=== PATIENT | female | born 1995 | race Caucasian/White ===

== ENCOUNTER 2023-03-09 13:05 | Inpatient (IN) ==
--- NOTE | 2023-03-09 15:52 | History & Physical Report ---
Date of Service March 09, 2023 Assessment & Plan (1) GBS (group B streptococcus) infection: (2) Need for rhogam due to Rh negative mother: (3) Shrimp allergy: Rosalina Santiago is a 27 year-old female at 40w3d gestation who presents in labor. -Will admit for labor -A-/GBS positive/Rubella immune. Will treat with PCN -3.5cm, 80%, -2. Fetus cat 1. -Can receive epidural if desired History of Present Illness Primary Care Provider: JOHANNY Rahman Pamela is a 27 year-old female at 40w3d gestation who presents in labor. Past medical history includes Kawasaki disease (diagnosed at age 18 months), followed by cardiology until age 15. Does not have any additional medical conditions. She notes normal movement, states she had a small amount of bleeding after losing her mucus plug early this morning. She is experiencing intermittent contractions, approximately 4-6 minutes apart. Denies shortness of breath or chest pain. 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 NON-REACTIVE (NON-REACTIVE) 08/14/22 Hepatitis C Antibody (EIA) NON-REACTIVE (NON-REACTIVE) 08/14/22 HIV (1&2) Ag and Ab Confirmation NON-REACTIVE (NON-REACTIVE) 08/14/22 Glucose 1 Hour 50 gm Load 79 mg/dl (70-130) 12/19/22 OB Optional Labs: Chlamydia trachomatis RNA Not Detected (NotDetected) 08/14/22 Neisseria gonorrhoeae RNA Not Detected (NotDetected) 08/14/22 Thyroid Stimulating Hormone (TSH) 1.740 uIu/ml (0.300-4.500) 10/04/22 Allergies Allergy/AdvReac Type Severity Reaction Status Date / Time shrimp Allergy Intermediate Nausea Verified 03/02/23 08:42 iodine Allergy Mild Vomiting Verified 03/02/23 08:42 No Known Drug Allergies Allergy Verified 03/02/23 08:42 shellfish derived Allergy Verified 03/02/23 08:42 Home Medications Medication Instructions Recorded Confirmed Type loratadine 10 mg tablet (Claritin) 10 mg PO DAILY 08/04/22 03/09/23 History docusate sodium 100 mg capsule 100 mg PO DAILY 03/09/23 03/09/23 History (Colace) vits no.124-ferrous fum 1 tab PO DAILY 03/09/23 03/09/23 History 27 mg iron-folic acid 800 mcg tablet ( Vitamin) Patient History Medical History Allergic conjunctivitis Allergic rhinitis Routine gynecological examination Shrimp allergy Surgical History History of gynecologic surgery Hymenotomy [place] teeth extracted Family History Mother Allergic rhinitis Unknown Asthma Grandfather (Maternal) Alcohol abuse Diabetes Grandmother (Maternal) Prediabetes Ovarian cancer Grandmother (Paternal) Prediabetes Grandfather (Maternal) Prediabetes Grandfather (Paternal) Prediabetes Father Kidney stones Other Drinking problem Fibroid Hypercholesteremia Hypertension Kidney disease Thyroid disease Denies family history of Prostate cancer Myocardial infarction Breast cancer Colorectal cancer Social History (Updated 10/04/22 @ 11:04 by SINCERE Funes) Smoking Status: Never smoker Second Hand Exposure: No; Do You Dip or Chew Tobacco: No; Hx Alcohol Use: No Hx Substance Use: No Preferred Language: Chadian Communication Ability: Effective Visual Impairment: No Limitations Hearing Ability: Normal Carrier Washer Required: No Beliefs That Will Affect Care: None marital status: marital status details: Cory Rebolledo (24) [phone] Current Living Situation: Spouse Current Living Situation Comment: Lives with and dog. 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 Respiratory: normal respiratory effort, lungs clear to auscultation Cardiovascular: Rate/Rhythm: regular rate and regular rhythm +1 bilateral lower extremity edema Skin: no rashes, warm and dry Psychiatric: A+Ox3, euthymic affect Genitourinary: Manual OB Exam: + cervical dilation (3.5), + cervical effaceme nt 80% and + station -2 OB Exam Monitor Tracing: + external FHT monitor used and + category I Exam per Dr. Bah Results & Data Vital Signs (Past 12 Hours) Vital Signs Temp Pulse Resp BP 03/09/23 13:27 36.7 C 84 20 118/72 03/09/23 13:12 84 118/72 Supervising Physician Co-Signing Physician Notes Resident Physician Supervision Note: I interviewed and examined the patient. Discussed with Dr. Mathur and agree with findings and plan as documented in the note. Any exceptions or clarifications are listed here: 27 yo G1 at 40 3/7 presented w/ c/o ctx increasing in frequency and intensity. Was seen overnight and 1cm, d/c'd home. Reports ctx were q5-6 at that time, now more q4-5 and more painful. +FM; denies LOF, significant VB. Initial exam 2-3, progressed to 3-4. PNI: GBS+. VSS, SVE 3-4/50/-2 on last check. Fetus cat 1, ctx q5-6. Will admit, augment PRN. Start PCN, epidural prn Documented By: Sharron Bah MD Resident Activity Tracking Resident Involvement: Resident Care Provided Care Provided: OB Delivery
[2023-03-09] MEDS ORDERED: LIDOCAINE 1% LOCAL 20 ML VIAL INFIL PRN (16:13)
[2023-03-09] MEDS ORDERED: OXYTOCIN 30 UNITS/500 ML BAG IV PRN ×2 (16:13→21:31)
[2023-03-09 16:32] LABS: Hematocrit (blood only) 37.9 % (37.0-47.0); Hemoglobin 12.6 g/dl (12.0-16.0); Mean Corpuscular Hemoglobin 27.8 pg (25.0-34.0); Mean Corpuscular Hgb Conc 33.2 g/dL (32.0-36.0); Mean Corpuscular Volume 83.5 fL (80.0-100.0); Mean Platelet Volume 9.9 fL (9.4-12.4); Platelet Count 335 K/uL (130-400); RDW Coefficient of Variation 13.2 % (11.5-14.5); Red Blood Count 4.54 M/uL (4.20-5.40); White Blood Count 11.09 K/ul (4.8-10.8)
[2023-03-09] MEDS ORDERED: PENICILLIN G POTASSIUM 6 MU in DEXTROSE 5% 250 ML IV STA (16:38)
[2023-03-09] MEDS: LACTATED RINGER'S 1,000 ML IV PRN ×2 (17:10→20:46)
[2023-03-09] MEDS ORDERED: fentaNYL citrate PF 100 MCG/2 ML VIAL ONE (19:49)
[2023-03-09] MEDS ORDERED: SODIUM CHLORIDE 0.9% PF INJ 10 ML VIAL ONE (19:49)
[2023-03-09] MEDS ORDERED: BUPIVACAINE 0.25% PF 30 ML VIAL ONE (19:50)
[2023-03-09] MEDS ORDERED: LIDOCAINE 2%/EPINEPHRINE 1:200,000 20 ML PF ONE (19:50)
[2023-03-09] MEDS ORDERED: fentaNYL 2MCG/ML ROPIVACAINE 1.25MG/ML 100 ML BAG EPI ONE (19:50)
[2023-03-09] MEDS ORDERED: BUPIVACAINE 0.25% PF 30 ML VIAL EPI STA (19:52)
[2023-03-09] MEDS ORDERED: SODIUM CHLORIDE 0.9% PF INJ 10 ML VIAL EPI STA (19:52)
[2023-03-09] MEDS ORDERED: NALOXONE HCL 1 MG in SODIUM CHLORIDE 0.9% 1000ML 1,000 ML IV PRN (19:52)
[2023-03-09] MEDS ORDERED: ROPIVACAINE 0.5% PF 5 MG/ML 20 ML VIAL EPI PRN (19:52)
[2023-03-09] MEDS ORDERED: LIDOCAINE 2% MPF LOCAL 5 ML VIAL EPI PRN (19:52)
[2023-03-09] MEDS ORDERED: NALOXONE HCL 0.4 MG/1 ML VIAL/CARP IV PRN (19:52)
[2023-03-09] MEDS ORDERED: fentaNYL citrate PF 100 MCG/2 ML VIAL EPI STA (19:52)
[2023-03-09] MEDS ORDERED: BUPIVACAINE 0.25% PF 30 ML VIAL EPI PRN (19:52)
[2023-03-09] MEDS ORDERED: ePHEDrine sulfate 50 MG/ML AMP IV PRN (19:52)
[2023-03-09] MEDS ORDERED: NALBUPHINE HCL INJ 10 MG/ML AMP IV PRN (19:52)
[2023-03-09] MEDS ORDERED: LIDOCAINE 2%/EPINEPHRINE 1:200,000 20 ML PF EPI STA (19:52)
[2023-03-09] MEDS ORDERED: fentaNYL 2MCG/ML ROPIVACAINE 1.25MG/ML 100 ML BAG EPI PRN (19:52)
[2023-03-09] MEDS ORDERED: fentaNYL citrate PF 100 MCG/2 ML VIAL EPI PRN (19:52)
[2023-03-09] MEDS ORDERED: SODIUM CHLORIDE 0.9% PF INJ 10 ML VIAL EPI PRN (19:52)
[2023-03-09] MEDS ORDERED: diphenhydrAMINE 50 MG/ML VIAL IV PRN (19:52)
[2023-03-09] MEDS ORDERED: ePHEDrine sulfate 50 MG/ML AMP ONE (19:53)
--- NOTE | 2023-03-09 19:55 | Anesthesiology Consultation ---
Date of Service March 09, 2023 Assessment & Plan ASA ASA2 Proposed Anesthesia Anesthesia Type: Labor Epidural Risk / Benefits Reviewed With: PT / POA / Parent / Guardian, Accepts Plan and Informed Consent Obtained History Height/Weight Height: 5 ft 8 in Weight: 105.687 kg Allergies Allergy/AdvReac Type Severity Reaction Status Date / Time shrimp Allergy Intermediate Nausea Verified 03/02/23 08:42 iodine Allergy Mild Vomiting Verified 03/02/23 08:42 No Known Drug Allergies Allergy Verified 03/02/23 08:42 shellfish derived Allergy Verified 03/02/23 08:42 Medications Home Medications Medication Instructions Recorded Confirmed Last Taken loratadine 10 mg tablet (Claritin) 10 mg PO DAILY 08/04/22 03/09/23 03/08/23 docusate sodium 100 mg capsule 100 mg PO DAILY 03/09/23 03/09/23 03/08/23 (Colace) vits no.124-ferrous fum 1 tab PO DAILY 03/09/23 03/09/23 03/08/23 27 mg iron-folic acid 800 mcg tablet ( Vitamin) Active Medications Generic Name Dose Route Start Last Admin Trade Name Freq PRN Reason Stop Dose Admin Lactated Ringer's 1,000 mls @ 125 mls/hr 03/09/23 16:13 03/09/23 19:05 Lr IV 03/11/23 16:12 0 mls/hr .Q8H PRN Infusion L&D Protocol Protocol Past Medical History Medical History Allergic conjunctivitis Allergic rhinitis Routine gynecological examination Shrimp allergy Exercise / Class Metabolic Activity II 4-5 Yardwork/Stairs/Walk up hill Past Family History Family History Mother Allergic rhinitis Unknown Asthma Grandfather (Maternal) Alcohol abuse Diabetes Grandmother (Maternal) Prediabetes Ovarian cancer Grandmother (Paternal) Prediabetes Grandfather (Maternal) Prediabetes Grandfather (Paternal) Prediabetes Father Kidney stones Other Drinking problem Fibroid Hypercholesteremia Hypertension Kidney disease Thyroid disease Denies family history of Prostate cancer Myocardial infarction Breast cancer Colorectal cancer Past Surgical History Surgical History History of gynecologic surgery Hymenotomy [place] teeth extracted Past Anesthesia History No Hx of Anesthesia Complications and No Family Hx of Anesthesia Complications History of PONV No Hx of PONV and No Hx of Motion Sickness Social History Smoking Status: Never smoker Do You Dip or Chew Tobacco: No Hx Alcohol Use: No Hx Substance Use: No Review of Systems denies fever/cough/ colds/ chest pain/ SOB/ LATONYA denies LATONYA Physical Exam Vital Signs Last Vital Signs Temp 36.7 C 03/09/23 19:15 Pulse 96 H 03/09/23 19:05 Resp 16 03/09/23 19:15 BP 131/78 03/09/23 19:05 ENMT Mouth: no TMJ abnormality and no dentition abnormality Thyromental Distance: > or= 3.5 Finger Breadths Mallampati Class: II Neck neck extension not limited Respiratory normal respiratory effort; no respiratory distress Auscultation: lungs clear to auscultation bilaterally Cardiovascular Rate/Rhythm: regular rate and regular rhythm Neurologic moves all extremities Psychiatric Orientation: alert and oriented x 3 Testing Laboratory Results 03/09/23 16:13 Blood Type A Negative 03/09/23 16:19 Antibody Screen NEGATIVE 03/09/23 16:19
--- NOTE | 2023-03-09 21:22 | Labor Progress Brief Note ---
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, pit if needed GBS+, pcn ordered epidural in place Admission and Anticipated Discharge Date Admission Date: March 09, 2023 Physical Exam Genitourinary: Manual OB Exam: + cervical dilation 4 cm, + cervical effacement 80%, + station -2 and + amniotic fluid (arom clear) OB Exam Monitor Tracing: + external FHT monitor used, + external uterine monitor used (q7) and + category I (130/mod/+accel/-decel) Results & Data Vital Signs (Past 12 Hours) Vital Signs Temp Pulse Resp BP Pulse Ox 03/09/23 19:15 98.1 F 16 03/09/23 13:27 98.1 F 84 20 118/72 03/09/23 21:17 98 03/09/23 21:17 73 03/09/23 21:12 99 03/09/23 21:12 83 03/09/23 21:07 99 03/09/23 21:07 65 03/09/23 21:07 133/73 03/09/23 21:02 98 03/09/23 21:02 83 03/09/23 20:57 99 03/09/23 20:57 81 03/09/23 20:52 99 03/09/23 20:52 79 03/09/23 20:52 82 03/09/23 20:52 117/86 03/09/23 20:47 98 03/09/23 20:47 86 03/09/23 20:42 99 03/09/23 20:42 84 03/09/23 20:37 99 03/09/23 20:37 79 03/09/23 20:36 79 03/09/23 20:36 132/71 03/09/23 20:34 85 03/09/23 20:34 131/69 03/09/23 20:32 99 03/09/23 20:32 83 03/09/23 20:32 137/71 03/09/23 20:30 94 H 03/09/23 20:30 103/62 03/09/23 20:27 99 03/09/23 20:27 87 05/12/23 20:28 82 03/09/23 20:28 128/74 03/09/23 20:26 88 03/09/23 20:26 117/72 03/09/23 20:24 88 03/09/23 20:24 117/66 03/09/23 20:22 100 03/09/23 20:22 83 03/09/23 20:21 85 03/09/23 20:21 119/66 03/09/23 20:19 90 03/09/23 20:19 122/68 03/09/23 20:17 100 03/09/23 20:17 89 03/09/23 20:17 85 03/09/23 20:17 129/63 03/09/23 20:15 90 03/09/23 20:15 150/56 H 03/09/23 20:12 100 03/09/23 20:12 87 03/09/23 20:11 96 H 03/09/23 20:11 146/79 H 03/09/23 20:08 89 03/09/23 20:08 142/83 H 03/09/23 20:07 100 03/09/23 20:07 94 H 03/09/23 20:02 98 03/09/23 20:02 84 03/09/23 20:02 140/89 03/09/23 19:05 96 H 03/09/23 19:05 131/78 03/09/23 17:07 83 03/09/23 17:07 98.1 F 18 133/66 03/09/23 13:12 84 118/72 Coding Level of Care Code None Diagnoses GBS (group B streptococcus) infection A49.1
[2023-03-09] MEDS: PENICILLIN G POTASSIUM 3 MU in DEXTROSE 5% 100 ML IV PRN (21:45)
[2023-03-10] MEDS ORDERED: ACETAMINOPHEN 325 MG TAB PO ONE (00:12)
[2023-03-10] MEDS ORDERED: NURSING L&D Epidural Breakthrough Pain Update ONE (00:30)
[2023-03-10] MEDS: PENICILLIN G POTASSIUM 3 MU in DEXTROSE 5% 100 ML IV PRN (01:59)
--- NOTE | 2023-03-10 05:43 | Delivery Summary ---
Vaginal Delivery Summary Date of Service March 10, 2023 Vaginal Delivery Summary and 2nd Degree LAC PREOPERATIVE DIAGNOSIS: 1. Single intrauterine at 40 4/7 wga 2. Labor 3. GBS+ POSTOPERATIVE DIAGNOSIS: 1. Single intrauterine at 40 4/7 wga 2. Labor 3. GBS+ 4. Delivered PROCEDURE: 1. Normal spontaneous vaginal delivery. SURGEON: Sharron Bah MD ANESTHESIA: Epidural. ESTIMATED BLOOD LOSS: 300 mL FLUIDS: Continuous LR. URINE OUTPUT: Not measured. COMPLICATIONS: None. CONDITION: Stable. INDICATIONS: 27 yo G1 at 40 4/7 wga presented w/ ctx increasing in frequency and intensity yesterday afternoon. She continued to progress spontaneously and r eceived an epidural for pain control. She underwent AROM. Pitocin was started as significant change after arom was not yet noted and she then progressed to complete and desired to push. FINDINGS: A viable female infant, weight pending with Apgars of 7 and 9 at 1 and 5 minutes respectively. SPECIMEN: Cord blood OPERATIVE REPORT: The patient progressed to 10 cm, 100% effaced and +2 station, pushed over intact perineum with anesthesia to deliver a viable female , weight and Apgars as above. Head of delivered in RALPH position. No nuchal cord was present. Body and shoulders were delivered without difficulty. was delivered to maternal abdomen and nursing staff. Delayed cord clamping was performed for 60 seconds. Cord was clamped and cut. Cord blood was obtained. Placenta delivered spontaneously intact with 3-vessel cord. IV oxytocin and fundal massage were given for excellent hemostasis. Vagina, cervix, perineum, and placenta were inspected. A second degree laceration was noted and repaired using 3-0 vicryl. A hemostatic left labial/periclitoral abrasion was noted but needed to be repaired. Sponge and needle counts correct x2. No sponges were left behind. Mother and stable in immediate period. [facility] Vaginal Delivery Charge Vaginal Delivery Codes: 88420 global code for the antepartum, delivery, and post- Delivery Type Details: and 2nd Degree LAC
[2023-03-10] MEDS ORDERED: OXYTOCIN 30 UNITS/500 ML BAG IV PRN (05:51)
[2023-03-10] MEDS ORDERED: BENZOCAINE 20% AER SPR 82.5 GM CAN EXT PRN (05:51)
[2023-03-10] MEDS ORDERED: bisacodyL 10 MG SUPP PR PRN (05:51)
[2023-03-10] MEDS ORDERED: DIPHTHERIA/TETANUS/PERTUSSIS Vaccine (Tdap, Age 7+yrs) 0.5mL SYR/VL IM ONE (05:51)
--- NOTE | 2023-03-10 07:37 | Anesthesia Procedure Note ---
Date of Service March 10, 2023 Anesthesia Post Epidural Note Vital Signs Vital Signs: Temp Pulse Resp BP Pulse Ox 37.0 C 93 H 16 129/60 91 03/10/23 03:30 03/10/23 07:21 03/10/23 03:30 03/10/23 07:21 03/10/23 04:16 Pain Intensity Lower Back: Pain Intensity: 0 Notes Mental Status: alert / awake / arousable Nausea / Vomiting: adequately controlled Pain: adequately controlled Airway Patency, RR, SpO2: stable & adequate BP & HR: stable & adequate Hydration State: stable & adequate Neuraxial Anesthesia: was administered and sensory block is resolving Anesthetic Complications: no major complications apparent Epidural: Removed without complications and With tip intact
[2023-03-10] MEDS: DOCUSATE SODIUM 100 MG CAP PO SCH ×2 (09:47→20:45)
[2023-03-10] MEDS: PRENATAL VITAMIN 1 TAB PO SCH (09:47)
[2023-03-10] MEDS: FERROUS SULFATE 325 MG TAB PO SCH (09:47)
[2023-03-10] MEDS: IBUPROFEN 600 MG TAB PO PRN ×3 (09:47→20:45)
[2023-03-10] MEDS: HYDROCORTISONE ACETATE 25 MG SUPP PR PRN (15:25)
[2023-03-10] MEDS: ACETAMINOPHEN 325 MG TAB PO PRN (18:41)
[2023-03-11] MEDS: IBUPROFEN 600 MG TAB PO PRN ×3 (03:55→20:25)
--- NOTE | 2023-03-11 07:31 | Obstetrical Progress Note ---
Date of Service March 11, 2023 Assessment & Plan (1) Encounter for assessment: Plan Doing well. Routine care. Rhogam if indicated. Day #:: 1 Subjective Ambulation: ambulating normally Voiding: no voiding problems Passing Gas:: Yes Diet Tolerance:: regular diet Lochia:: Small Feeding Type:: breast feeding Physical Exam Constitutional WD/WN, vitals as above Respiratory normal respiratory effort, lungs clear to auscultation Cardiovascular RRR, no murmur, no edema Extremities: no calf tenderness and no edema Gastrointestinal (Abdomen) soft, nt, nd, ff/nt at u Results & Data Vital Signs (Past 12 Hours) Vital Signs Temp Pulse Pulse Resp BP BP Pulse Ox 03/11/23 03:50 36.5 C 80 16 107/68 97 03/11/23 00:10 36.7 C 87 16 101/56 L 97 03/10/23 19:55 36.4 C L 87 16 113/67 97 O2 Del Method 03/11/23 03:50 Room Air 03/11/23 00:10 Room Air 03/10/23 19:55 Room Air
[2023-03-11] MEDS: PRENATAL VITAMIN 1 TAB PO SCH (07:36)
[2023-03-11] MEDS: DOCUSATE SODIUM 100 MG CAP PO SCH ×2 (07:36→20:25)
[2023-03-11] MEDS: FERROUS SULFATE 325 MG TAB PO SCH (07:36)
[2023-03-11] MEDS: ACETAMINOPHEN 325 MG TAB PO PRN ×2 (07:42→18:06)
[2023-03-11] MEDS: HYDROCORTISONE ACETATE 25 MG SUPP PR PRN (07:42)
[2023-03-11] MEDS ORDERED: bisacodyL 5 MG TABEC PO SCH (20:00)
[2023-03-12] MEDS: IBUPROFEN 600 MG TAB PO PRN ×2 (00:27→06:15)
--- NOTE | 2023-03-12 06:01 | Obstetrical Progress Note ---
Date of Service <Viky BrownKyra Pitt DO - Last Filed: 03/12/23 06:35> March 12, 2023 Assessment & Plan <Viky Hunt DO Yoandy - Last Filed: 03/12/23 06:35> (1) care following vaginal delivery: Patient is PPD 2 s/p and doing well. - Eating well, voiding well, ambulating well - Vitals reviewed and within normal limits - Pain well controlled with analgesics - OOB, ambulation, diet progression as tolerated - Blood type: A-, GBS pos, rubella immune - Plan to discharge today - After discharge, 6 week follow up with Dr. Bah (2) GBS (group B streptococcus) infection: (3) Need for rhogam due to Rh negative mother: <Niurka Dow MD, FACOG - Last Filed: 03/12/23 07:20> (1) care following vaginal delivery: (2) GBS (group B streptococcus) infection: (3) Need for rhogam due to Rh negative mother: Subjective <Viky BrownKyra Pitt DO - Last Filed: 03/12/23 06:35> Patient is a 27 yo female who is now PPD #2 following spontaneous vaginal delivery at 40 4/7 weeks. Reports feeling well this morning. She denies abdominal cramping and 3-4/10 pain well managed on analgesics. Voiding without issue. Tolerating regular meals overnight and able to ambulate some. She has passed gas and had no bowel movements. Persistent lochia with some improvement this morning. Currently breast feeding with formula supplementation. Review of Systems Denies fever, chills, sweats. Denies SOB, difficulty breathing, chest pain, palpitations, and chest pressure. Denies breast pain. Denies dysuria. Denies headache or changes in vision. Physical Exam <Viky BrownKyra Pitt DO - Last Filed: 03/12/23 06:35> General: Alert and oriented. No acute distress. CV: Regular rate and rhythm. No murmurs. Respiratory: CTA bilaterally. No rhonchi, wheezes, or crackles. No increased work of breathing. Abdomen: Positive bowel sounds. Soft, nontender, non distended. Uterus: Fundus firm and palpable 2 cm below the umbilicus. Lower extremities: No LE edema. No deep calf pain. Compression socks on bilaterally. Results & Data <Viky Pitt DO - Last Filed: 03/12/23 06:35> Vital Signs (Past 12 Hours) Vital Signs Temp Pulse Resp BP Pulse Ox O2 Del Method 03/11/23 20:30 36.4 C L 88 18 107/68 97 Room Air 03/11/23 23:32 36.6 C 82 20 116/73 97 Room Air <Niurka Dow MD, FACOG - Last Filed: 03/12/23 07:20> Co-Signing Physician Notes Resident Physician Supervision Note: I interviewed and examined the patient. Discussed with Dr. Pitt and agree with findings and plan as documented in the note. Any exceptions or clarifications are listed here: Doing well. plan d/c. Instructions given. Documented By: Niurka Dow MD, FACOG Resident Activity Tracking <Viky Pitt DO - Last Filed: 03/12/23 06:35> Resident Involvement: Resident Care Provided Care Provided: OB Delivery
[2023-03-12] MEDS: DOCUSATE SODIUM 100 MG CAP PO SCH (07:43)
[2023-03-12] MEDS: PRENATAL VITAMIN 1 TAB PO SCH (07:43)
[2023-03-12] MEDS: FERROUS SULFATE 325 MG TAB PO SCH (07:43)
[2023-03-12] MEDS: HYDROCORTISONE ACETATE 25 MG SUPP PR PRN (07:44)
[2023-03-12] MEDS: ACETAMINOPHEN 325 MG TAB PO PRN (07:56)
== END 2023-03-12 14:03 | disposition home or self-care (01) | DRG 807 ==
LOC: OPB 13:05 → 4S1 13:06 → 4E2 03-10 07:45

== ENCOUNTER 2024-08-07 07:33 | Inpatient (IN) ==
[2024-08-07] MEDS ORDERED: OXYTOCIN 30 UNITS/NSS 30 UNITS/500 ML BAG IV PRN ×2 (08:18→22:15)
[2024-08-07] MEDS ORDERED: LIDOCAINE 1% LOCAL 20 ML VIAL INFIL PRN (08:18)
--- NOTE | 2024-08-07 08:54 | History & Physical Report ---
Date of Service August 07, 2024 Assessment & Plan (1) Insulin controlled gestational diabetes mellitus (GDM) during : (2) with 39 completed weeks gestation: (3) LGA (large for gestational age) fetus affecting management of mother: Plan admit for iol. Too high to even consider arom, so plan pitocin, arom when indicated, epidural on demand, fetus category one Patient is aware that she must push this baby out on her own. Not a candidate for instrumentation. Admission and Anticipated Discharge Date Admission Date: August 07, 2024 History of Present Illness Chief Complaint: iol, lga Primary Care Provider: JOHANNY Melgar Patient is a 28yowf with iup at 39 1/7 weeks who presents to labor and delivery for iol for suspected lga. Last us showed AC and EFW in >95%, last baby was 8#13oz after a three hour push. Patient notes no labor sx. Good fm. and Delivery Plans Need for Rhogam d/t Rh negative mother - Given 05/21/24 ML circuvallate placenta *growth us serially starting at 28wks GDM on insulin *Wkly NSTs @32wks and Twice wkly @36wks *Serial growth US @28wks *Deliver by EDC - IOL 08/07 OB Labs: Blood Type A Negative 01/23/24 Antibody Screen NEGATIVE 05/21/24 Hgb 11.8 g/dl (12.0-16.0) L 05/20/24 Hct 35.8 % (37.0-47.0) L 05/20/24 MCV 85.7 fL (80.0-100.0) 01/23/24 Plt Count 420 K/uL (130-400) H 01/23/24 VZV IgG Antibody 356.40 index 06/10/20 Rubella IgG Antibody Immune (Immune) 01/23/24 RPR Nonreactive (Nonreactive) 01/23/24 Hep Bs Antigen NON-REACTIVE (NON-REACTIVE) 01/23/24 Hepatitis C Ab (EIA) NON-REACTIVE (NON-REACTIVE) 01/23/24 HIV (1&2) Ag & Ab Conf NON-REACTIVE (NON-REACTIVE) 01/23/24 Glucose 1 Hr 50 gm 149 mg/dl (70-130) H 05/20/24 OB Optional Labs: Chlamydia trachomatis RNA Not Detected (NotDetected) 01/23/24 Neisseria gonorrhoeae RNA Not Detected (NotDetected) 01/23/24 Thyroid Stimulating Hormone (TSH) 1.162 uIu/ml (0.300-4.500) 12/12/23 Labs Reviewed: cfdna-low risk--mln gbs neg--akh Allergies Allergy/AdvReac Type Severity Reaction Status Date / Time shrimp Allergy Intermediate Nausea Verified 08/06/24 14:47 iodine Allergy Mild Vomiting Verified 08/06/24 14:47 No Known Drug Allergies Allergy Unknown Verified 08/07/24 08:23 shellfish derived Allergy Unknown Verified 08/07/24 08:23 grass pollen AdvReac Unknown Verified 08/07/24 08:23 house dust mite AdvReac Unknown Verified 08/07/24 08:23 Home Medications Medication Instructions Recorded Confirmed Type loratadine 10 mg tablet (Claritin) 10 mg PO DAILY 08/04/22 08/07/24 History Saccharomyces boulardii 250 mg 250 mg PO DAILY #60 caps 10/08/23 08/06/24 Rx capsule (Daily Probiotic (S. boulardii)) PNV no.[id number] 1 tab PO DAILY 01/09/24 08/07/24 History [ Gummies] breast pump #1 ea 04/09/24 08/06/24 Rx blood sugar diagnostic (OneTouch #150 ea 07/04/24 08/06/24 Rx Verio test strips) lancets 33 gauge (OneTouch Delica #150 ea 07/04/24 08/06/24 Rx Plus Lancet) blood-glucose meter (OneTouch #1 ea 07/07/24 08/06/24 Rx Verio Reflect Meter) pen needle, diabetic 32 gauge x #100 ea 07/19/24 08/06/24 Rx 5/32" (BD Ultra-Fine Britney Pen Needle) Patient History Medical History (spontaneous vaginal delivery) 2022 Fractured coccyx At age 20 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 Scoliosis Routine gynecological examination Allergic conjunctivitis Allergic rhinitis Surgical History History of gynecologic surgery Hymenotomy [place] teeth extracted Family History Mother Allergic rhinitis Unknown Asthma Grandfather (Maternal) Alcohol abuse Diabetes Grandmother (Maternal) Prediabetes Ovarian cancer Grandmother (Paternal) Prediabetes Grandfather (Maternal) Prediabetes Grandfather (Paternal) Prediabetes Father Kidney stones Other Drinking problem Fibroid Hypercholesteremia Hypertension Kidney disease Thyroid disease Denies family history of Prostate cancer Myocardial infarction Breast cancer Colorectal cancer Social History Smoking Status: Never smoker Second Hand Exposure: No; Do You Dip or Chew Tobacco: No; Tobacco Cessation Education Requested by Patient: No Hx Alcohol Use: No Hx Substance Use: No Preferred Language: Danish Communication Ability: Effective Visual Impairment: No Limitations Hearing Ability: Normal Mattress Filling Machine Tender Required: No Beliefs That Will Affect Care: None marital status: marital status details: Cory Rebolledo (25) [phone] Current Living Situation: Spouse Current Living Situation Comment: Lives with , child, and dog. 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 Date GA wks Lbr Lgth wt Sex Type del Anes Place Del Prov ? Comment 03/10/23 40 8lb 13.4oz F Ep idural [facility] Dr. Niurka Napier [employer] History noncontributory Physical Exam Constitutional: WD/WN, vitals as above Cardiovascular: Extremities: + edema (tr); no calf tenderness Gastrointestinal (Abdomen): obese, soft, nt Psychiatric: A+Ox3, euthymic affect Genitourinary: cx--very difficult exam, 2-3/75/-3/soft/very posterior toco--radha efw--130s wtih mod variabiltiy, accels to 170s, no decels, ? mild arrythmia noted initially , but not now. Results & Data Vital Signs (Past 12 Hours) Vital Signs Temp Pulse Resp BP 08/07/24 07:51 36.4 C L 20 08/07/24 07:46 105 H 112/71 Coding Level of Care Code None Diagnoses Insulin controlled gestational diabetes mellitus (GDM) during O24.414 with 39 completed weeks gestation Z3A.39 LGA (large for gestational age) fetus affecting management of mother O36.60X0
[2024-08-07 09:11] LABS: Hematocrit (blood only) 33.9 % (37.0-47.0); Hemoglobin 11.2 g/dl (12.0-16.0); Mean Corpuscular Hemoglobin 26.1 pg (25.0-34.0); Mean Platelet Volume 9.9 fL (9.4-12.4); Platelet Count 313 K/uL (130-400); RDW Coefficient of Variation 13.3 % (11.5-14.5); RDW Standard Deviation 38.2 fL (36.4-46.3); Red Blood Count 4.29 M/uL (4.20-5.40); White Blood Count 8.33 K/ul (4.8-10.8)
[2024-08-07] MEDS: LACTATED RINGER'S 1,000 ML IV PRN (09:12)
[2024-08-07] MEDS: OXYTOCIN 30 UNITS/NSS 30 UNITS/500 ML BAG IV PRN (09:12)
[2024-08-07] MEDS ORDERED: SODIUM CHLORIDE 0.9% 250 ML IV PRN (09:27)
[2024-08-07] MEDS: ACETAMINOPHEN 325 MG TAB PO ONE (15:09)
--- NOTE | 2024-08-07 16:30 | Anesthesiology Consultation ---
Date of Service August 07, 2024 Assessment & Plan Chart Review Chart Review: Patient NOT seen in Pre Admission Testing and Acceptable Risk for Labor Epidural Consults Requested none ASA ASA2 Proposed Anesthesia Anesthesia Type: Labor Epidural Risk / Benefits Reviewed With: PT / POA / Parent / Guardian, Accepts Plan and Informed Consent Obtained History Height/Weight Height: 5 ft 8 in Weight: 105.687 kg Allergies Allergy/AdvReac Type Severity Reaction Status Date / Time shrimp Allergy Intermediate Nausea Verified 08/06/24 14:47 iodine Allergy Mild Vomiting Verified 08/06/24 14:47 No Known Drug Allergies Allergy Unknown Verified 08/07/24 08:23 shellfish derived Allergy Unknown Verified 08/07/24 08:23 grass pollen AdvReac Unknown Verified 08/07/24 08:23 house dust mite AdvReac Unknown Verified 08/07/24 08:23 Medications Home Medications Medication Instructions Recorded Confirmed Last Taken loratadine 10 mg tablet (Claritin) 10 mg PO DAILY 08/04/22 08/07/24 08/05/24 08:00 Saccharomyces boulardii 250 mg 250 mg PO DAILY #60 caps 10/08/23 08/06/24 08/05/24 08:00 capsule (Daily Probiotic (S. boulardii)) PNV [id number] 1 tab PO DAILY 01/09/24 08/07/24 08/05/24 08:00 [ Gummies] breast pump #1 ea 04/09/24 08/06/24 Unknown blood sugar diagnostic (OneTouch #150 ea 07/04/24 08/06/24 Unknown Verio test strips) lancets 33 gauge (OneTouch Delica #150 ea 07/04/24 08/06/24 Unknown Plus Lancet) blood-glucose meter (OneTouch #1 ea 07/07/24 08/06/24 Unknown Verio Reflect Meter) pen needle, diabetic 32 gauge x #100 ea 07/19/24 08/06/24 Unknown 32" (BD Ultra-Fine Britney Pen Needle) Active Medications Generic Name Dose Route Start Last Admin Trade Name Freq PRN Reason Stop Dose Admin Oxytocin 30 units in 500 mls @ 17 mls/hr 08/07/24 08:18 08/07/24 15:00 Pitocin 30 Units/Nss IV 08/09/24 08:17 1.02 units/hr .Q24H PRN 17 mls/hr Labor Induction/Augmentation Titration Protocol 1.02 UNITS/HR Lactated Ringer's 1,000 mls @ 125 mls/hr 08/07/24 08:18 08/07/24 16:27 Lr IV 08/09/24 08:17 999 mls/hr .Q8H PRN Administration L&D Protocol Protocol NPO Date Last Intake of Fluids: 08/07/24 Time Last Intake of Fluids: 16:00 Date Last Intake of Solids: 08/07/24 Time Last Intake of Solids: 12:00 Past Medical History Medical History (spontaneous vaginal delivery) 2022 Fractured coccyx At age 20 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 Scoliosis Routine gynecological examination Allergic conjunctivitis Allergic rhinitis Exercise / Class Metabolic Activity 1 > 8 Run/Swim/Ski/Tennis Past Family History Family History Mother Allergic rhinitis Unknown Asthma Grandfather (Maternal) Alcohol abuse Diabetes Grandmother (Maternal) Prediabetes Ovarian cancer Grandmother (Paternal) Prediabetes Grandfather (Maternal) Prediabetes Grandfather (Paternal) Prediabetes Father Kidney stones Other Drinking problem Fibroid Hypercholesteremia Hypertension Kidney disease Thyroid disease Denies family history of Prostate cancer Myocardial infarction Breast cancer Colorectal cancer Past Surgical History Surgical History History of gynecologic surgery Hymenotomy [place] teeth extracted Past Anesthesia History No Hx of Anesthesia Complications and No Family Hx of Anesthesia Complications History of PONV No Hx of PONV and No Hx of Motion Sickness Social History Smoking Status: Smoker, status unknown Do You Dip or Chew Tobacco: No Hx Alcohol Use: No Hx Substance Use: No Review of Systems ROS Unobtainable: All systems reviewed & are unremarkable except as noted in HPI & below Physical Exam Vital Signs Last Vital Signs Temp 37.0 C 08/07/24 12:05 Pulse 86 08/07/24 16:17 Resp 18 08/07/24 12:05 BP 97/54 L 08/07/24 16:17 ENMT Mouth: no TMJ abnormality Thyromental Distance: > or= 3.5 Finger Breadths Mallampati Class: II Neck normal visual inspection and trachea midline; neck extension not limited Respiratory normal respiratory effort Auscultation: lungs clear to auscultation bilaterally Cardiovascular Rate/Rhythm: regular rate and regular rhythm Heart Sounds: no murmur Musculoskeletal Spine: normal cervical ROM Extremities: full ROM of extremities Neurologic moves all extremities Psychiatric Orientation: alert and oriented x 3 Testing Laboratory Results 08/07/24 08:45 Blood Type A Negative 08/07/24 08:45 Antibody Screen NEGATIVE 08/07/24 08:45 08/07/24 08/07/24 08/07/24 14:59 13:03 11:03 POC Glucose 87 98 81 08/07/24 09:04 POC Glucose 81
[2024-08-07] MEDS ORDERED: fentANYL 2 MCG/ML BUPIVacaine 0.125%-NSS 100ML BAG EPI PRN (16:31)
[2024-08-07] MEDS ORDERED: LIDOCAINE 2% MPF LOCAL 5 ML VIAL EPI PRN (16:31)
[2024-08-07] MEDS ORDERED: ePHEDrine sulfate 50 MG/ML AMP IV PRN (16:31)
[2024-08-07] MEDS ORDERED: BUPIVACAINE 0.25% PF 30 ML VIAL EPI PRN (16:31)
[2024-08-07] MEDS ORDERED: fentaNYL citrate PF 100 MCG/2 ML VIAL EPI PRN (16:31)
[2024-08-07] MEDS ORDERED: ROPIVACAINE 0.5% PF 5 MG/ML 20 ML VIAL EPI PRN (16:31)
[2024-08-07] MEDS ORDERED: SODIUM CHLORIDE 0.9% PF INJ 10 ML VIAL EPI PRN (16:31)
[2024-08-07] MEDS ORDERED: NALOXONE HCL 0.4 MG/1 ML VIAL/CARP IV PRN (16:31)
[2024-08-07] MEDS ORDERED: NALBUPHINE HCL INJ 10 MG/ML AMP IV PRN (16:31)
[2024-08-07] MEDS ORDERED: diphenhydrAMINE 50 MG/ML VIAL IV PRN (16:31)
[2024-08-07] MEDS ORDERED: NALOXONE HCL 1 MG in SODIUM CHLORIDE 0.9% 1,000 ML IV PRN (16:31)
[2024-08-07] MEDS: fentANYL 2 MCG/ML BUPIVacaine 0.125%-NSS 100ML BAG ONE (16:39)
[2024-08-07] MEDS: SODIUM CHLORIDE 0.9% PF INJ 10 ML VIAL ONE (16:43)
[2024-08-07] MEDS: LIDOCAINE 2%/EPINEPHRINE 1:200,000 20 ML PF ONE (16:43)
[2024-08-07] MEDS: BUPIVACAINE 0.25% PF 30 ML VIAL ONE (16:43)
[2024-08-07] MEDS: LIDOCAINE 2%/EPINEPHRINE 1:200,000 20 ML PF EPI STA (18:21)
[2024-08-07] MEDS: fentaNYL citrate PF 100 MCG/2 ML VIAL ONE (18:21)
[2024-08-07] MEDS: SODIUM CHLORIDE 0.9% PF INJ 10 ML VIAL EPI STA (18:21)
[2024-08-07] MEDS: BUPIVACAINE 0.25% PF 30 ML VIAL EPI STA (18:21)
[2024-08-07] MEDS: ePHEDrine sulfate 50 MG/ML AMP ONE (18:21)
[2024-08-07] MEDS: fentaNYL citrate PF 100 MCG/2 ML VIAL EPI STA (18:21)
--- NOTE | 2024-08-07 19:06 | Labor Progress Brief Note ---
Date of Service August 07, 2024 Subjective comfortable Assessment & Plan (1) LGA (large for gestational age) fetus affecting management of mother: (2) Insulin controlled gestational diabetes mellitus (GDM) during : Plan sugars controlled. arom done, continue current management. Fetus category two but overall reassuring. Admission and Anticipated Discharge Date Admission Date: August 07, 2024 Physical Exam Physical Exam: cx--4/75/-2 arom--clear toco--q2-3min, pit at 19 efm--140s with mod varibility, accels present, variables with some contractions. Results & Data Vital Signs (Past 12 Hours) Vital Signs Temp Pulse Resp BP Pulse Ox 08/07/24 19:01 100 08/07/24 19:01 71 08/07/24 18:56 100 08/07/24 18:56 68 08/07/24 18:51 100 08/07/24 18:51 69 08/07/24 18:46 100 08/07/24 18:46 71 08/07/24 18:45 70 08/07/24 18:45 110/63 08/07/24 18:41 99 08/07/24 18:41 71 08/07/24 18:36 99 08/07/24 18:36 69 08/07/24 18:31 99 08/07/24 18:31 72 08/07/24 18:31 114/61 08/07/24 18:30 16 08/07/24 18:30 16 08/07/24 18:26 99 08/07/24 18:26 70 08/07/24 18:21 99 08/07/24 18:21 69 08/07/24 18:16 99 08/07/24 18:16 67 08/07/24 18:15 73 08/07/24 18:15 108/65 08/07/24 18:11 99 08/07/24 18:11 71 08/07/24 18:06 100 08/07/24 18:06 73 08/07/24 18:01 100 08/07/24 18:01 69 08/07/24 18:01 68 08/07/24 18:01 109/67 08/07/24 17:56 100 08/07/24 17:56 70 08/07/24 17:51 100 08/07/24 17:51 72 08/07/24 17:46 100 08/07/24 17:46 77 08/07/24 17:46 74 08/07/24 17:46 111/67 08/07/24 17:41 99 08/07/24 17:41 69 08/07/24 17:36 100 08/07/24 17:36 74 08/07/24 17:31 100 08/07/24 17:31 74 08/07/24 17:31 68 08/07/24 17:31 110/66 08/07/24 17:30 18 08/07/24 17:30 18 08/07/24 17:26 100 08/07/24 17:26 72 08/07/24 17:21 100 08/07/24 17:21 77 08/07/24 17:16 100 08/07/24 17:16 73 08/07/24 17:15 70 08/07/24 17:15 115/73 08/07/24 17:11 99 08/07/24 17:11 83 08/07/24 17:10 77 08/07/24 17:10 110/68 08/07/24 17:06 100 08/07/24 17:06 79 08/07/24 17:05 80 08/07/24 17:05 115/62 08/07/24 17:01 99 08/07/24 17:01 77 08/07/24 17:01 77 08/07/24 17:01 112/69 08/07/24 17:00 18 08/07/24 17:00 18 08/07/24 16:56 99 08/07/24 16:56 88 08/07/24 16:55 20 08/07/24 16:55 20 08/07/24 16:55 75 08/07/24 16:55 96/53 L 08/07/24 16:54 96 H 08/07/24 16:54 105/59 L 08/07/24 16:52 78 08/07/24 16:52 104/55 L 08/07/24 16:51 99 08/07/24 16:51 82 08/07/24 16:50 20 08/07/24 16:50 20 08/07/24 16:50 89 08/07/24 16:50 106/58 L 08/07/24 16:48 86 08/07/24 16:48 104/55 L 08/07/24 16:46 100 08/07/24 16:46 81 08/07/24 16:46 101/55 L 08/07/24 16:45 77 08/07/24 16:45 107/56 L 08/07/24 16:41 99 08/07/24 16:41 193 H 08/07/24 16:41 180/132 H 08/07/24 16:36 99 08/07/24 16:36 83 08/07/24 16:31 100 08/07/24 16:31 85 08/07/24 16:26 100 08/07/24 16:26 79 08/07/24 16:17 86 08/07/24 16:17 97/54 L 08/07/24 15:19 76 08/07/24 15:19 105/53 L 08/07/24 14:18 93 H 08/07/24 14:18 111/76 08/07/24 13:17 85 08/07/24 13:17 115/72 08/07/24 12:59 75 08/07/24 12:59 109/60 08/07/24 12:05 18 08/07/24 12:05 37.0 C 18 08/07/24 11:17 80 08/07/24 11:17 115/60 08/07/24 10:18 88 08/07/24 10:18 118/67 08/07/24 09:16 86 08/07/24 09:16 109/68 08/07/24 07:51 36.4 C L 20 08/07/24 07:46 105 H 112/71 Coding Level of Care Code None Diagnoses LGA (large for gestational age) fetus affecting management of mother O36.60X0 Insulin controlled gestational diabetes mellitus (GDM) during O24.414
--- NOTE | 2024-08-07 21:11 | Delivery Summary ---
Vaginal Delivery Summary Date of Service August 07, 2024 Vaginal Delivery Summary and 2nd Degree LAC Pre-operative Diagnosis: at 39 1/7 weeks suspected lga insulin gdm Post-operative Diagnosis: same Procedure: pitocin induction arom epidural second degree laceration and repair QBL: 106cc Anesthesia: epidural Procedure: The patient was admitted to labor and delivery for iol for suspected lga. She got pitocin and the eventually got an epidural. Once comfortable, she had arom at 4cm. she progressed quickly to c/c/0 and felt urge to push. The patient pushed for 15 minutes to deliver a viable male in felipe position. The anterior shoulder was delivered easily and the rest of the was then delivered without difficulty. The baby was vigorous. The nose and mouth were again bulb suctioned and the infant was placed in the maternal abdomen for drying and attention. Cord was clamped and cut at one minute of life. Cord blood and segment obtained. Placenta delivered spontaneous, intact with a three vessel cord. Cervix/sulci/rectum were intact. A second degree perineal laceration was repaired in the normal standard fashion. Hemostasis obtained with dilute pitocin and fundal massage. Apgars were 8/8. Mother and baby doing well at the end of the delivery. [facility] Vaginal Delivery Charge Delivery Type Details: and 2nd Degree LAC
[2024-08-07] MEDS ORDERED: DIPHTHER/TETAN/PERTUS Vaccine (Tdap, Adol/Adult) 0.5mL IM ONE (22:15)
[2024-08-07] MEDS ORDERED: ACETAMINOPHEN 325 MG TAB PO PRN (22:15)
[2024-08-07] MEDS ORDERED: oxyCODONE/ACETAMINOPHEN 5mg/325mg TAB PO PRN (22:15)
[2024-08-07] MEDS: IBUPROFEN 600 MG TAB PO PRN (23:07)
[2024-08-07] MEDS: BENZOCAINE 20% SPRY 85 APPLN/85 GM CAN EXT PRN (23:07)
[2024-08-07 23:30] VITALS: O2SAT 98
[2024-08-08] MEDS: HYDROCORTISONE ACETATE 25 MG SUPP PR PRN (00:04)
--- NOTE | 2024-08-08 07:01 | Obstetrical Progress Note ---
Date of Service August 08, 2024 Assessment & Plan (1) Encounter for assessment: Plan: Patient is PPD 1 s/p and doing well - Eating well, voiding well, ambulating well - vitals reviewed and within normal limits - pain well controlled with analgesics - OOB, ambulation, diet progression as tolerated - Blood type: A-, GBS neg, rubella immune - Plan to discharge tomorrow - After discharge, 6 week follow up with OB Admission and Anticipated Discharge Date Admission Date: August 07, 2024 Supervising Physician Co-Signing Physician Notes Resident Physician Supervision Note: I interviewed and examined the patient. Discussed with Dr. rCowell and agree with findings and plan as documented in the note. Any exceptions or clarifications are listed here: Doing well. routine care for ppd 1. Documented By: Niurka Dow MD, FACOG Subjective 28 yo post- day 1 s/p Ambulation: ambulating normally Voiding: no voiding problems Passing Gas:: Yes Diet Tolerance:: regular diet Lochia:: Small Feeding Type:: breast feeding and supplemental bottle feeding Current Pain Level: 3-4/10 Resting comfortably this AM in NAD. Denies VALENTIN, CP, SOB, N/V/D, LE pain/swelling. Physical Exam Physical Exam: General: patient resting comfortably, NAD, non-toxic in appearance, answers questions appropriately. Skin: warm, dry, intact HEENT: NC/AT, anicteric sclera, conjunctiva without injection, moist mucus membranes. Heart: +S1/S2, regular, no m/r/g Lungs: equal air entry bilaterally, no rales/rhonchi/wheezes Abd: +BS, soft, NT/ND, uterine fundus firm at umbilicus Ext: warm, no clubbing/cyanosis or edema, John's neg. Neuro: nonfocal, speech intact, no facial droop, moving all extremities. Results & Data Vital Signs (Past 12 Hours) Vital Signs Temp Pulse Pulse Resp BP BP Pulse Ox 08/08/24 04:04 36.6 C 90 18 107/64 98 08/07/24 23:29 36.9 C 85 16 138/80 98 08/07/24 23:01 90 08/07/24 23:01 92/51 L 08/07/24 23:00 18 08/07/24 22:45 93 H 08/07/24 22:45 115/63 08/07/24 22:30 18 08/07/24 22:30 81 08/07/24 22:30 117/61 08/07/24 22:15 90 08/07/24 22:15 120/65 08/07/24 22:00 20 08/07/24 22:00 83 08/07/24 22:00 142/65 H 08/07/24 21:45 18 08/07/24 21:45 81 08/07/24 21:45 104/53 L 08/07/24 21:30 18 08/07/24 21:30 76 08/07/24 21:30 108/53 L 08/07/24 21:15 18 08/07/24 21:15 95 H 08/07/24 21:15 125/71 08/07/24 21:01 83 08/07/24 21:01 126/68 08/07/24 21:00 18 08/07/24 20:48 20 08/07/24 20:48 20 08/07/24 20:48 89 L 08/07/24 20:48 94 H 08/07/24 20:46 100 08/07/24 20:46 107 H 08/07/24 20:43 90 08/07/24 20:43 96 H 08/07/24 20:41 100 08/07/24 20:41 98 H 08/07/24 20:37 87 L 08/07/24 20:37 97 H 08/07/24 20:36 100 08/07/24 20:36 93 H 08/07/24 20:32 98 H 08/07/24 20:32 120/61 08/07/24 20:31 100 08/07/24 20:31 99 H 08/07/24 20:26 100 08/07/24 20:26 81 08/07/24 20:21 100 08/07/24 20:21 75 08/07/24 20:16 78 L 08/07/24 20:16 86 08/07/24 20:15 81 08/07/24 20:15 104/57 L 08/07/24 20:14 91 08/07/24 20:14 81 08/07/24 20:11 100 08/07/24 20:11 76 08/07/24 20:06 100 08/07/24 20:06 73 08/07/24 20:01 100 08/07/24 20:01 67 08/07/24 20:01 88 L 08/07/24 20:01 73 08/07/24 20:00 18 08/07/24 20:00 18 08/07/24 20:00 69 08/07/24 20:00 106/58 L 08/07/24 19:56 100 08/07/24 19:56 79 08/07/24 19:51 99 08/07/24 19:51 73 08/07/24 19:46 100 08/07/24 19:46 70 08/07/24 19:46 62 08/07/24 19:46 105/58 L 08/07/24 19:41 100 08/07/24 19:41 65 08/07/24 19:36 100 08/07/24 19:36 66 08/07/24 19:32 68 08/07/24 19:32 109/57 L 08/07/24 19:31 100 08/07/24 19:31 68 08/07/24 19:30 20 08/07/24 19:30 20 08/07/24 19:26 100 08/07/24 19:26 68 08/07/24 19:21 100 08/07/24 19:21 67 08/07/24 19:20 08/07/24 19:16 100 08/07/24 19:16 72 08/07/24 19:16 111/60 08/07/24 19:12 74 08/07/24 19:12 118/73 08/07/24 19:11 100 08/07/24 19:11 78 08/07/24 19:10 18 08/07/24 19:10 36.8 C 18 08/07/24 19:09 92 08/07/24 19:09 94 H 08/07/24 19:06 100 08/07/24 19:06 74 08/07/24 19:01 100 08/07/24 19:01 71 08/07/24 19:00 18 08/07/24 19:00 18 O2 Del Method 08/08/24 04:04 Room Air 08/07/24 23:29 Room Air 08/07/24 23:01 08/07/24 23:01 08/07/24 23:00 08/07/24 22:45 08/07/24 22:45 08/07/24 22:30 08/07/24 22:30 08/07/24 22:30 08/07/24 22:15 08/07/24 22:15 08/07/24 22:00 08/07/24 22:00 08/07/24 22:00 08/07/24 21:45 08/07/24 21:45 08/07/24 21:45 08/07/24 21:30 08/07/24 21:30 08/07/24 21:30 08/07/24 21:15 08/07/24 21:15 08/07/24 21:15 08/07/24 21:01 08/07/24 21:01 08/07/24 21:00 08/07/24 20:48 08/07/24 20:48 08/07/24 20:48 08/07/24 20:48 08/07/24 20:46 08/07/24 20:46 08/07/24 20:43 08/07/24 20:43 08/07/24 20:41 08/07/24 20:41 08/07/24 20:37 08/07/24 20:37 08/07/24 20:36 08/07/24 20:36 08/07/24 20:32 08/07/24 20:32 08/07/24 20:31 08/07/24 20:31 08/07/24 20:26 08/07/24 20:26 08/07/24 20:21 08/07/24 20:21 08/07/24 20:16 08/07/24 20:16 08/07/24 20:15 08/07/24 20:15 08/07/24 20:14 08/07/24 20:14 08/07/24 20:11 08/07/24 20:11 08/07/24 20:06 08/07/24 20:06 08/07/24 20:01 08/07/24 20:01 08/07/24 20:01 08/07/24 20:01 08/07/24 20:00 08/07/24 20:00 08/07/24 20:00 08/07/24 20:00 08/07/24 19:56 08/07/24 19:56 08/07/24 19:51 08/07/24 19:51 08/07/24 19:46 08/07/24 19:46 08/07/24 19:46 08/07/24 19:46 08/07/24 19:41 08/07/24 19:41 08/07/24 19:36 08/07/24 19:36 08/07/24 19:32 08/07/24 19:32 08/07/24 19:31 08/07/24 19:31 08/07/24 19:30 08/07/24 19:30 08/07/24 19:26 08/07/24 19:26 08/07/24 19:21 08/07/24 19:21 08/07/24 19:20 Room Air 08/07/24 19:16 08/07/24 19:16 08/07/24 19:16 08/07/24 19:12 08/07/24 19:12 08/07/24 19:11 08/07/24 19:11 08/07/24 19:10 08/07/24 19:10 08/07/24 19:09 08/07/24 19:09 08/07/24 19:06 08/07/24 19:06 08/07/24 19:01 08/07/24 19:01 08/07/24 19:00 08/07/24 19:00 Resident Activity Tracking Resident Involvement: Resident Care Provided Care Provided: OB Delivery (1) Encounter for assessment visit type: exam and care immediately after delivery Qualified Code(s): Z39.0 - Encounter for care and examination of mother immediately after delivery
[2024-08-08 07:27] LABS: Hematocrit (blood only) 31.7 % (37.0-47.0); Hemoglobin 10.2 g/dl (12.0-16.0)
--- NOTE | 2024-08-08 07:54 | Anesthesia Procedure Note ---
Date of Service August 08, 2024 Anesthesia Post Epidural Note Vital Signs Vital Signs: Temp Pulse Resp BP Pulse Ox O2 Del Method 97.9 F 90 18 107/64 98 Room Air 08/08/24 04:04 08/08/24 04:04 08/08/24 04:04 08/08/24 04:04 08/08/24 04:04 08/08/24 04:04 Pain Intensity Episiotomy/Laceration: Pain Intensity: 4 Notes Mental Status: alert / awake / arousable and participated in evaluation Nausea / Vomiting: adequately controlled Pain: adequately controlled Airway Patency, RR, SpO2: stable & adequate BP & HR: stable & adequate Hydration State: stable & adequate Neuraxial Anesthesia: was administered and sensory block is resolving Anesthetic Complications: no major complications apparent and Pt Satisfied with anesthetic care Epidural: Removed without complications and With tip intact
[2024-08-08] MEDS: DOCUSATE SODIUM 100 MG CAP PO SCH (09:05)
[2024-08-08] MEDS: PRENATAL VITAMIN 1 TAB PO SCH (09:05)
[2024-08-08] MEDS: bisacodyL 5 MG TABEC PO SCH (19:41)
[2024-08-08 19:44] VITALS: RESP 16
--- NOTE | 2024-08-09 06:58 | Obstetrical Progress Note ---
Date of Service August 09, 2024 Assessment & Plan (1) Encounter for assessment: Plan: Patient is PPD 2 s/p and doing well - Eating well, voiding well, ambulating well - vitals reviewed and within normal limits - pain well controlled with analgesics - OOB, ambulation, diet progression as tolerated - Blood type: A-, GBS neg, rubella immune - Plan to discharge today - After discharge, 6 week follow up with OB Admission and Anticipated Discharge Date Admission Date: August 07, 2024 Supervising Physician Co-Signing Physician Notes Resident Physician Supervision Note: I interviewed and examined the patient. Discussed with Dr. Crowell and agree with findings and plan as documented in the note. Any exceptions or clarifications are listed here: [None] Documented By: Steffi Kaminski MD, FACOG Subjective 28 yo post- day 2 s/p Ambulation: ambulating normally Voiding: no voiding problems Passing Gas:: Yes Diet Tolerance:: regular diet Lochia:: Small Feeding Type:: breast feeding and supplemental bottle feeding Current Pain Level: 3-4/10 Resting comfortably this AM in NAD. Denies VALENTIN, CP, SOB, N/V/D, LE pain/swelling. Physical Exam Physical Exam: General: patient resting comfortably, NAD, non-toxic in appearance, answers questions appropriately. Skin: warm, dry, intact HEENT: NC/AT, anicteric sclera, conjunctiva without injection, moist mucus membranes. Heart: +S1/S2, regular, no m/r/g Lungs: equal air entry bilaterally, no rales/rhonchi/wheezes Abd: +BS, soft, NT/ND, uterine fundus firm at umbilicus Ext: warm, no clubbing/cyanosis or edema, John's neg. Neuro: nonfocal, speech intact, no facial droop, moving all extremities. Results & Data Vital Signs (Past 12 Hours) Vital Signs Temp Pulse Resp BP Pulse Ox O2 Del Method 08/08/24 23:45 37.0 C 81 16 119/68 98 Room Air 08/08/24 19:30 36.7 C 94 H 16 128/80 98 Room Air Resident Activity Tracking Resident Involvement: Resident Care Provided Care Provided: OB Delivery (1) Encounter for assessment visit type: exam and care immediately after delivery Qualified Code(s): Z39.0 - Encounter for care and examination of mother immediately after delivery
[2024-08-09 07:40] VITALS: BP 112/78; PULSE 82; TEMP 98.6
[2024-08-09] MEDS ORDERED: bisacodyL 10 MG SUPP PR PRN (22:15)
== END 2024-08-09 10:30 | disposition home or self-care (01) | DRG 807 ==
LOC: 4S1 07:33 → 4E2 23:49